=== PATIENT | male | born 1965 | race Caucasian/White ===

== ENCOUNTER 2024-06-30 17:22 | Emergency (ER) | payer OTHER ==
[~2024-06-30] VITALS: Ht 165.1 cm; Wt 74.8 kg
[2024-06-30 17:25] VITALS: O2SAT 99
[2024-06-30 17:32] VITALS: TEMP 36.6; O2SAT 100
[2024-06-30 18:18] VITALS: BP 155/99; PULSE 60; RESP 18
[2024-06-30] MEDS: HYDROCODONE/ACETAMINOPHEN 5/325MG TABLET PO ONE (18:18)
[2024-06-30 18:55] LABS: BASOPHILS % 0.5 % (0.0-2.0); EOSINOPHILS % 0.4 % (0.0-5.0); HEMATOCRIT. 31.8 % (42.0-52.0); MEAN CORPUSCULAR HEMOGLOBIN 30.5 pg (28.0-32.0); MEAN CORPUSCULAR HGB CONC 34.7 g/dL (31.0-37.0); MEAN CORPUSCULAR VOLUME 87.7 fL (80.0-94.0); MEAN PLATELET VOLUME 7.3 fl (7.4-10.4); MONOCYTES % 6.4 % (2.0-8.0); NEUTROPHILS % 79.7 % (40.0-76.0); PLATELET 431 x1000/uL (130-400); RED BLOOD CELL COUNT 3.63 mill/uL (4.7-6.1); RED CELL DISTRIBUTION WIDTH 13.5 % (11.6-14.6); WHITE BLOOD COUNT 8.2 x1000/uL (4.5-11.0)
[2024-06-30 19:04] LABS: CHLORIDE 100 mEq/L (98-107); POTASSIUM 3.4 mEq/L (3.5-5.1); SODIUM 134 mEq/L (136-145)
[2024-06-30 19:05] LABS: CALCIUM 9.1 mg/dL (8.7-10.4); CARBON DIOXIDE 21 mEq/L (21-32)
[2024-06-30 19:10] LABS: CREATININE 0.9 mg/dL (0.6-1.3); GLUCOSE 211 mg/dL (70-105); UREA NITROGEN BLOOD 17 mg/dL (9-23)
[2024-06-30 19:12] LABS: ALANINE AMINOTRANSFERASE 28 IU/L (10-49); ALBUMIN 3.8 g/dL (3.2-4.8); ASPARTATE AMINOTRANSFERASE 18 IU/L (<34); BILIRUBIN TOTAL 0.3 mg/dL (0.1-1.0); PROTEIN TOTAL 9.2 g/dL (6.0-8.3)
[2024-06-30 19:16] LABS: CLARITY URINE CLOUDY (CLEAR); COLOR URINE DARK YELLOW (YELLOW); GLUCOSE URINE NEGATIVE (NEGATIVE); KETONES URINE NEGATIVE (NEGATIVE); LEUKOCYTE ESTERASE URINE 3+ (NEGATIVE); NITRITE URINE NEGATIVE (NEGATIVE); OCCULT BLOOD URINE 3+ (NEGATIVE); PH URINE 5.5 (4.5-8.0); PROTEIN URINE 2+ (NEGATIVE); SPECIFIC GRAVITY URINE 1.016 (1.005-1.030); UROBILINOGEN URINE 0.2 E.U./dL (0.2-1.0)
[2024-06-30 19:17] LABS: BILIRUBIN DIRECT < 0.1 mg/dL (<=3.0)
[2024-06-30 19:37] LABS: BACTERIA URINE 2+; RBC URINE TNTC /hpf (0-2); SQUAMOUS EPITHELIAL CELL URINE FEW /lpf (RARE/1+); WBC URINE TNTC /hpf (0-2)
[2024-06-30] MEDS ORDERED: CIPR500T5 MT (19:44)
== END 2024-06-30 19:58 | disposition home or self-care (01) ==
LOC: ER 17:22
DX: N39.0 Urinary tract infection, site not specified (principal); R33.9 Retention of urine, unspecified
CPT/HCPCS: 36415; 51702; 80048; 80076; 81003; 85025; 87106; 99284